=== PATIENT | male | born 1950 | race Caucasian/White ===

== ENCOUNTER 2020-02-24 11:19 | Emergency (ER) | payer MEDICARE, BC ==
[2020-02-24] MEDS ORDERED: Sodium Chloride 0.9% 10 ML Syringe FLUSH PRN ×2 (11:44→13:28)
--- NOTE | 2020-02-24 12:12 | EDM.PDOC ---
ED HPI GENERAL MEDICAL PROBLEM - General Chief Complaint: General Stated Complaint: DIZZINESS Time Seen by Provider: 02/24/20 11:44 Source of Information: Reports: Patient History Limitations: Reports: No Limitations - History of Present Illness INITIAL COMMENTS - FREE TEXT/NARRATIVE: Patient is a 69-year-old male presenting to the emergency department with complaints of decreased appetite, loss of taste and smell, fever and chills, intermittent abdominal discomfort, and a slight cough and a "tickle in his throat ". He states symptoms began last with a mild cough. He had biopsies completed on his prostate on Thursday of this week. States that evening he felt dizzy, however, the cough had improved. Thursday he states he lost his taste and smell. He has not been eating very much because he just does not have an appetite. She occasionally has a subjective fever with intermittent chills, however he has not checked his temperature at home. He does have intermittent nausea with some generalized upper abdominal pain, however states he was started on a pill after his biopsies were completed and he feels like this is causing him abdominal upset. Symptoms only occur after he takes the medication. He is unsure what medication it is, however states he only has about 2 pills left. Overall, he feels like his symptoms are improving from the onset last . He denies any shortness of breath, significant cough, chest pain, vomiting, or diarrhea. headache Pain Score (Numeric/FACES): 3 - Related Data Allergies Allergy/AdvReac Type Severity Reaction Status Date / Time cefuroxime [From Ceftin] Allergy Severe Anaphylactic Verified 02/24/20 11:30 Shock Home Meds: Home Meds Cetirizine HCl [Zyrtec] 1 tab PO DAILY 02/24/20 [History] Empagliflozin [Jardiance] 50 mg PO BID 02/24/20 [History] Sulfamethoxazole/Trimethoprim [Bactrim Ds Tablet] 1 each PO BID #14 tablet 02/24/20 [Rx] Past Medical History Endocrine/Metabolic History: Reports: Diabetes, Type II Social & Family History - Tobacco Use Smoking Status *Q: Never Smoker - Caffeine Use Caffeine Use: Reports: None - Recreational Drug Use Recreational Drug Use: No ED ROS GENERAL - Review of Systems Review Of Systems: See Below Constitutional: Reports: Fever, Chills, Fatigue, Decreased Appetite HEENT: Reports: Other ("Scratchy" throat) Respiratory: Denies: Shortness of Breath, Cough Cardiovascular: Reports: Lightheadedness. Denies: Chest Pain, Dyspnea on Exertion, Syncope Endocrine: Reports: No Symptoms GI/Abdominal: Reports: Abdominal Pain (Intermittent upper), Decreased Appetite. Denies: Diarrhea, Nausea, Vomiting : Reports: No Symptoms Musculoskeletal: Reports: No Symptoms Skin: Reports: No Symptoms Neurological: Reports: Dizziness Psychiatric: Reports: No Symptoms Hematologic/Lymphatic: Reports: No Symptoms Immunologic: Reports: No Symptoms ED EXAM, GENERAL - Physical Exam Exam: See Below General Appearance: Alert, WD/WN, No Apparent Distress Eye Exam: Bilateral Eye: Normal Inspection Throat/Mouth: Normal Inspection, Normal Lips, Normal Teeth, Normal Gums, Normal Oropharynx, Normal Voice, No Airway Compromise Head: Atraumatic, Normocephalic Respiratory/Chest: No Respiratory Distress, Lungs Clear, Normal Breath Sounds, No Accessory Muscle Use, Chest Non-Tender Cardiovascular: Normal Peripheral Pulses, Regular Rate, Rhythm, No Edema, No Gallop, No JVD, No Murmur, No Rub GI/Abdominal: Normal Bowel Sounds, Soft, Non-Tender, No Organomegaly, No Distention, No Abnormal Bruit, No Mass Neurological: Alert, Oriented, CN II-XII Intact, Normal Cognition, Normal Gait, Normal Reflexes, No Motor/Sensory Deficits Psychiatric: Normal Affect, Normal Mood Skin Exam: Warm, Dry, Intact, Normal Color, No Rash EKG INTERPRETATION EKG Date: 02/24/20 Time: 12:25 Rhythm: NSR Rate (Beats/Min): 83 [place]: Normal P-Wave: Present QRS: Normal ST-T: Normal QT: Normal Course - Vital Signs Last Recorded V/S: Last Vital Signs Temp 97.4 F 02/24/20 11:25 Pulse 100 02/24/20 11:25 Resp 18 02/24/20 11:25 BP 142/82 H 02/24/20 11:25 Pulse Ox 97 02/24/20 11:25 - Orders/Labs/Meds Labs: Laboratory Tests 02/24/20 02/24/20 02/24/20 Range/Units 11:58 11:58 11:58 WBC 14.37 H (4.23-9.07) K/mm3 RBC 4.59 L (4.63-6.08) M/mm3 Hgb 13.3 L (13.7-17.5) gm/dl Hct 40.6 (40.1-51.0) % MCV 88.5 (79.0-92.2) fl MCH 29.0 (25.7-32.2) pg MCHC 32.8 (32.2-35.5) g/dl RDW Std Deviation 46.5 H (35.1-43.9) fL Plt Count 168 D (163-337) K/mm3 MPV 10.0 (9.4-12.3) fl Neut % (Auto) 85.0 H (34.0-67.9) % Lymph % (Auto) 7.2 L (21.8-53.1) % [place] % (Auto) 7.4 (5.3-12.2) % Eos % (Auto) 0.1 L (0.8-7.0) Baso % (Auto) 0.1 (0.1-1.2) % Neut # (Auto) 12.22 H (1.78-5.38) K/mm3 Lymph # (Auto) 1.03 L (1.32-3.57) K/mm3 [place] # (Auto) 1.07 H (0.30-0.82) K/mm3 Eos # (Auto) 0.01 L (0.04-0.54) K/mm3 Baso # (Auto) 0.01 (0.01-0.08) K/mm3 D-Dimer, Quantitative (0.19-0.50) mg/L Sodium 132 L (136-145) mEq/L Potassium 3.5 (3.5-5.1) mEq/L Chloride 95 L (98-107) mEq/L Carbon Dioxide 25 (21-32) mEq/L Anion Gap 15.5 H (5-15) BUN 21 H (7-18) mg/dL Creatinine 1.3 (0.7-1.3) mg/dL Est Cr Clr Drug Dosing 49.76 mL/min Estimated GFR (MDRD) 55 (>60) mL/min BUN/Creatinine Ratio 16.2 (14-18) Glucose 193 H (80-115) mg/dL Lactic Acid (0.4-2.0) mmol/L Calcium 9.2 (8.5-10.1) mg/dL Ferritin 467 H (26-388) ng/ml Total Bilirubin 1.2 H (0.2-1.0) mg/dL AST 22 (15-37) U/L ALT 14 L (16-63) U/L Alkaline Phosphatase 62 (46-116) U/L Lactate Dehydrogenase 154 (85-227) U/L Troponin I < 0.017 (0.00-0.056) ng/mL C-Reactive Protein 31.4 H* (<1.0) mg/dL Total Protein 7.8 (6.4-8.2) g/dl Albumin 3.3 L (3.4-5.0) g/dl Globulin 4.5 gm/dL Albumin/Globulin Ratio 0.7 L (1-2) Urine Color (Yellow) Urine Appearance (Clear) Urine pH (5.0-8.0) Ur Specific [place] (1.005-1.030) Urine Protein (Negative) Urine Glucose (UA) (Negative) Urine Ketones (Negative) Urine Occult Blood (Negative) Urine Nitrite (Negative) Urine Bilirubin (Negative) Urine Urobilinogen (0.2-1.0) Ur Leukocyte Esterase (Negative) Urine RBC (0-5) /hpf Urine WBC (0-5) /hpf Ur Squamous Epith Cells (0-5) /hpf Urine Bacteria (FEW) /hpf Urine Mucus (FEW) /hpf SARS-CoV-2 RNA (ROHITH) (NEGATIVE) 02/24/20 02/24/20 02/24/20 Range/Units 11:58 12:15 13:52 WBC (4.23-9.07) K/mm3 RBC (4.63-6.08) M/mm3 Hgb (13.7-17.5) gm/dl Hct (40.1-51.0) % MCV (79.0-92.2) fl MCH (25.7-32.2) pg MCHC (32.2-35.5) g/dl RDW Std Deviation (35.1-43.9) fL Plt Count (163-337) K/mm3 MPV (9.4-12.3) fl Neut % (Auto) (34.0-67.9) % Lymph % (Auto) (21.8-53.1) % [place] % (Auto) (5.3-12.2) % Eos % (Auto) (0.8-7.0) Baso % (Auto) (0.1-1.2) % Neut # (Auto) (1.78-5.38) K/mm3 Lymph # (Auto) (1.32-3.57) K/mm3 [place] # (Auto) (0.30-0.82) K/mm3 Eos # (Auto) (0.04-0.54) K/mm3 Baso # (Auto) (0.01-0.08) K/mm3 D-Dimer, Quantitative 1.42 H (0.19-0.50) mg/L Sodium (136-145) mEq/L Potassium (3.5-5.1) mEq/L Chloride (98-107) mEq/L Carbon Dioxide (21-32) mEq/L Anion Gap (5-15) BUN (7-18) mg/dL Creatinine (0.7-1.3) mg/dL Est Cr Clr Drug Dosing mL/min Estimated GFR (MDRD) (>60) mL/min BUN/Creatinine Ratio (14-18) Glucose (80-115) mg/dL Lactic Acid 1.2 (0.4-2.0) mmol/L Calcium (8.5-10.1) mg/dL Ferritin (26-388) ng/ml Total Bilirubin (0.2-1.0) mg/dL AST (15-37) U/L ALT (16-63) U/L Alkaline Phosphatase (46-116) U/L Lactate Dehydrogenase (85-227) U/L Troponin I (0.00-0.056) ng/mL C-Reactive Protein (<1.0) mg/dL Total Protein (6.4-8.2) g/dl Albumin (3.4-5.0) g/dl Globulin gm/dL Albumin/Globulin Ratio (1-2) Urine Color Yellow (Yellow) Urine Appearance Clear (Clear) Urine pH 6.0 (5.0-8.0) Ur Specific [place] 1.015 (1.005-1.030) Urine Protein 2+ H (Negative) Urine Glucose (UA) 2+ H (Negative) Urine Ketones 1+ H (Negative) Urine Occult Blood 2+ H (Negative) Urine Nitrite Positive H (Negative) Urine Bilirubin Negative (Negative) Urine Urobilinogen 0.2 (0.2-1.0) Ur Leukocyte Esterase Trace H (Negative) Urine RBC 10-20 H (0-5) /hpf Urine WBC 5-10 H (0-5) /hpf Ur Squamous Epith Cells 0-5 (0-5) /hpf Urine Bacteria Moderate H (FEW) /hpf Urine Mucus Few (FEW) /hpf SARS-CoV-2 RNA (ROHITH) (NEGATIVE) 02/24/20 Range/Units 14:36 WBC (4.23-9.07) K/mm3 RBC (4.63-6.08) M/mm3 Hgb (13.7-17.5) gm/dl Hct (40.1-51.0) % MCV (79.0-92.2) fl MCH (25.7-32.2) pg MCHC (32.2-35.5) g/dl RDW Std Deviation (35.1-43.9) fL Plt Count (163-337) K/mm3 MPV (9.4-12.3) fl Neut % (Auto) (34.0-67.9) % Lymph % (Auto) (21.8-53.1) % [place] % (Auto) (5.3-12.2) % Eos % (Auto) (0.8-7.0) Baso % (Auto) (0.1-1.2) % Neut # (Auto) (1.78-5.38) K/mm3 Lymph # (Auto) (1.32-3.57) K/mm3 [place] # (Auto) (0.30-0.82) K/mm3 Eos # (Auto) (0.04-0.54) K/mm3 Baso # (Auto) (0.01-0.08) K/mm3 D-Dimer, Quantitative (0.19-0.50) mg/L Sodium (136-145) mEq/L Potassium (3.5-5.1) mEq/L Chloride (98-107) mEq/L Carbon Dioxide (21-32) mEq/L Anion Gap (5-15) BUN (7-18) mg/dL Creatinine (0.7-1.3) mg/dL Est Cr Clr Drug Dosing mL/min Estimated GFR (MDRD) (>60) mL/min BUN/Creatinine Ratio (14-18) Glucose (80-115) mg/dL Lactic Acid (0.4-2.0) mmol/L Calcium (8.5-10.1) mg/dL Ferritin (26-388) ng/ml Total Bilirubin (0.2-1.0) mg/dL AST (15-37) U/L ALT (16-63) U/L Alkaline Phosphatase (46-116) U/L Lactate Dehydrogenase (85-227) U/L Troponin I (0.00-0.056) ng/mL C-Reactive Protein (<1.0) mg/dL Total Protein (6.4-8.2) g/dl Albumin (3.4-5.0) g/dl Globulin gm/dL Albumin/Globulin Ratio (1-2) Urine Color (Yellow) Urine Appearance (Clear) Urine pH (5.0-8.0) Ur Specific [place] (1.005-1.030) Urine Protein (Negative) Urine Glucose (UA) (Negative) Urine Ketones (Negative) Urine Occult Blood (Negative) Urine Nitrite (Negative) Urine Bilirubin (Negative) Urine Urobilinogen (0.2-1.0) Ur Leukocyte Esterase (Negative) Urine RBC (0-5) /hpf Urine WBC (0-5) /hpf Ur Squamous Epith Cells (0-5) /hpf Urine Bacteria (FEW) /hpf Urine Mucus (FEW) /hpf SARS-CoV-2 RNA (ROHITH) Positive H (NEGATIVE) Meds: Medications Discontinued Medications Generic Name Dose Route Start Last Admin Trade Name Freq PRN Reason Stop Dose Admin Sodium Chloride 1,000 mls @ 500 mls/hr 02/24/20 13:14 02/24/20 13:30 Normal Saline IV 02/24/20 15:13 500 mls/hr NOW STA Administration Sodium Chloride 100 mls @ 75 mls/hr 02/24/20 13:30 02/24/20 13:49 Normal Saline IV 75 mls/hr ASDIRECTED MACIEL Administration Iopamidol 100 ml 02/24/20 13:28 02/24/20 13:49 Isovue-370 (76%) IVPUSH 02/24/20 13:29 100 ml ONETIME ONE Administration Sodium Chloride 10 ml 02/24/20 11:44 10/09/20 12:04 Saline Flush FLUSH 10 ml ASDIRECTED PRN Administration Keep Vein Open Sodium Chloride 10 ml 02/24/20 13:28 02/24/20 13:49 Saline Flush FLUSH 10 ml ONETIME PRN Administration IV FLUSH Trimethoprim/Sulfamethoxazole 1 tab 02/24/20 16:08 02/24/20 17:02 Septra Ds PO 02/24/20 16:09 1 tab ONETIME ONE Administration - Re-Assessments/Exams Free Text/Narrative Re-Assessment/Exam: Patient is a 69-year-old male presenting to the emergency department with complaints of loss of taste and smell, subjective fever and chills, as well as a cough that has since resolved. Patient had prostate biopsies completed last Thursday and has been taking ciprofloxacin x4 days to prevent infection after this procedure. This was verified by contacting Dr. Aquino office. Exam, patient's lung sounds are clear. Oxygen saturation was 97% on room air. He is afebrile at 97.4. Ordered a CBC, CMP, CRP, ferritin, LDH, urinalysis, and d- dimer. 02/24/20 1314 Collagen was significant for WBC elevated at 14.37, hemoglobin slightly low at 13.3, D-dimer 1.42, sodium 132, chloride 95, anion gap 15.5, BUN 21, ferritin 467, total bili 1.2, CRP 31.4. I have ordered a CT angiogram of the chest as well as a 1 hour Covid test. Urinalysis results are still pending. 02/24/20 16:10 CT angiogram of the chest was negative for PEs or any other abnormalities. Covid results were positive. Urinalysis showed2+ protein, 2+ glucose, 1+ ketones, 2+ occult blood, positive nitrites, trace leukocyte esterase, 10-20 RBCs, 5-10 WBCs, and moderate bacteria. Called and spoke with urologist on-call at [facility] and [place]. Patient has been on Cipro and continues to have signs of bacterial infection his urine. He recommended that we change him to cefdinir 300 mg twice daily for 7 days. After I spoke with him, it was noted that patient has an anaphylactic allergy to Ceftin, therefore cephalosporins would not be recommended. We will started on Bactrim DS twice daily for 7 days. Recommend that he continue with ciprofloxacin. Urine has been sent for culture. If this should grow out a bacteria that is not septic well to Bactrim, we will change it. Discussed return precautions with patient including increased fever, nausea, vomiting, weakness, or any other concerning symptoms. He verbalized understanding this. Also recommend follow-up with Dr. Gomez early next week. Discharge instructions as documented. Departure - Departure Time of Disposition: 16:14 Disposition: Home, Self-Care 01 Condition: Good Clinical Impression: UTI, Urinary tract infectious disease, COVID-19 - Discharge Information *PRESCRIPTION DRUG MONITORING PROGRAM REVIEWED*: No *COPY OF PRESCRIPTION DRUG MONITORING REPORT IN PATIENT MARY: No Prescriptions: Sulfamethoxazole/Trimethoprim [Bactrim Ds Tablet] 1 each PO BID #14 tablet Instructions: COVID-19, Urinary Tract Infection, Adult, [id number] Referrals: Bekah Mc, [employer] COUNSELOR [Primary Care Provider] - Forms: ED Department Discharge, ED Return to Work/School Form Additional Instructions: You were seen in the emergency department today for intermittent fever and chills, fatigue, and loss of taste and smell. Work-up included blood work, urin alysis, a coronavirus test, and a CT angiogram your chest. Results of your work-up do show that you are positive for COVID, however you do not have pneumonia or blood clots within your lungs. Your urinalysis did also show infection, despite being on ciprofloxacin after your prostate biopsies this week. You have been started on Bactrim DS which is an antibiotic for treatment of urinary tract infection. Recommend that you continue taking your Cipro as previously prescribed as well. Your urine has been sent for culture, therefore if this should grow the bacteria that is not susceptible to the antibiotics that you are on, you will be notified and your antibiotic will be changed. Recommend follow-up with Dr. Gomez early next week. Ensure you are taking an adequate amount of fluid. If you feel that you are worsening in any way, such as worsening fever, chills, nausea, vomiting, or any other symptoms of concern, please return to the emergency department. Recommend you isolate and quarantine as advised by the of [facility]. They should be in contact with you sometime tomorrow. Sepsis Event Note (ED) - Evaluation Sepsis Screening Result: No Definite Risk
[2020-02-24] MEDS ORDERED: Sodium Chloride 0.9% 1,000 ML IV STA (13:14)
[2020-02-24] MEDS ORDERED: Iopamidol 755 Mg/ML 100 ML Bottle IVPUSH ONE (13:28)
[2020-02-24] MEDS ORDERED: Sodium Chloride 0.9% 100 ML IV SCH (13:30)
[2020-02-24] MEDS ORDERED: Sulfamethoxazole/Trimethoprim 800-160 MG Tab PO ONE (16:08)
== END 2020-02-24 17:20 | disposition home or self-care (01) ==
LOC: JD.ED 11:19
DX: U07.1 COVID-19 (principal); N39.0 Urinary tract infection, site not specified; D72.829 Elevated white blood cell count, unspecified; E11.9 Type 2 diabetes mellitus without complications; Z88.1 Allergy status to other antibiotic agents; Z79.84 Long term (current) use of oral hypoglycemic drugs
CPT/HCPCS: 36415; 71045; 71275; 80053; 81001; 82728; 83605; 83615; 84484; 85025; 85379; 86140; 87040; 87086; 87088; 87184; 87186; 93005; 96360; 99284; A9270; J7030; Q9967; U0002